=== PATIENT | male | born 1965 | race Caucasian/White ===

== ENCOUNTER → 2021-04-19 | Outpatient (CLI) | payer OTHER ==
[~2021-04-19] MED LIST: ALBUTEROL0.63 MG/3 INH; ANORO ELLIPTA1 EACH INH; DALIRESP500 MCG PO; LEVAQUIN750 MG PO; METFORMIN HCL1000 M1 PO; PERCOCET 5/325 T1 EA PO; PREDNISONE 50 M50 MG PO; PREDNISONE20 MG PO; PROAIR HFA8.5 GM INH; PROVENTIL HFA6.7 GM INH; SINGULAIR10 MG PO; VENTOLIN HFA 66.7 GM INH; VIBRAMYCIN100 MG PO; ZITHROMAX250 MG PO
== END ==
LOC: KOH-I 10:05
DX: J44.9 Chronic obstructive pulmonary disease, unspecified (principal)
CPT/HCPCS: 71046

== ENCOUNTER → 2021-04-19 | Outpatient (CLI) | payer OTHER | LOC: HEART 5 09:21 | DX: J44.9 Chronic obstructive pulmonary disease, unspecified (principal) | CPT/HCPCS: 94060; 94729 ==

== ENCOUNTER → 2021-07-24 | Outpatient (CLI) | payer OTHER | LOC: CT 14:36 | DX: R93.89 Abnormal findings on diagnostic imaging of other specified body structures (principal); J43.9 Emphysema, unspecified; I31.3 Pericardial effusion (noninflammatory) | CPT/HCPCS: 71260; Q9967 ==

== ENCOUNTER 2021-08-14 10:35 | Emergency (ER) | payer OTHER ==
[2021-08-14 11:53] LABS: HEMOGLOBIN 18.1 gm/dl (14.0-17.5); RED BLOOD COUNT 6.48 M/UL (4.20-5.50); WHITE BLOOD COUNT 10.6 K/UL (4.5-11.0)
[2021-08-14 12:00] LABS: BUN/CREATININE RATIO 17 (0-10)
[2021-08-14] MEDS ORDERED: PREDNISONE20 MG PO (13:33)
== END 2021-08-14 13:41 | disposition left against medical advice (07) ==
LOC: ER1 10:35
PROVIDERS: Emergency Medicine
DX: J44.1 Chronic obstructive pulmonary disease with (acute) exacerbation (principal); R09.02 Hypoxemia; F17.210 Nicotine dependence, cigarettes, uncomplicated; Z88.1 Allergy status to other antibiotic agents
CPT/HCPCS: 36600; 71045; 80053; 81001; 82550; 82553; 82803; 83605; 83880; 84484; 85025; 86140; 87040; 93005; 94664; 94760; 96374; 96375; 99283; J1100; J1885

== ENCOUNTER → 2022-02-21 | Outpatient (CLI) | payer OTHER | LOC: KOH-I 09:35 | DX: R06.02 Shortness of breath (principal); R91.8 Other nonspecific abnormal finding of lung field; R93.89 Abnormal findings on diagnostic imaging of other specified body structures | CPT/HCPCS: 71250 ==